=== PATIENT | male | born 2000 | race Asian ===

== ENCOUNTER 2018-02-07 10:25 | Emergency (ER) | payer MEDICAID ==
--- NOTE | 2018-02-07 11:05 | EDPHY ---
General - History Smoking Status: Never smoked Time Seen by Provider: 02/07/18 10:55 Narrative: CHIEF COMPLAINT: Head injury, headache, nausea HISTORY OF PRESENT ILLNESS: Patient presents per private vehicle with complaints of head injury last night. He states that he was drinking alcohol last night and then "I ran into a door and hit my head." He states that he struck his head on the left hoahaoism. He states that he actually does not remember this but he was told this happened. He is amnestic to the events approximately 1-2 hours proceeding is but knows that he was drinking. He says he awoke this morning on the couch with no knowledge of what happened with severe headache and nausea. No neck stiffness. No numbness or tingling. No vomiting. No visual disturbance. No complaints of pain elsewhere. He says that he does not typically ingest alcohol this much. He has had previous concussions and is concerned, thus he presents here for imaging. No neck pain or stiffness. No other associated complaints or modifying factors. REVIEW OF SYSTEMS: 10 systems were reviewed and negative with the exception of the elements mentioned in the history of present illness. PCP: Located in [place], [place] SPECIALISTS: None PAST MEDICAL HISTORY: Previous concussion PAST SURGICAL HISTORY: Left ORIF forearm surgery last year SOCIAL HISTORY: Nonsmoker. Occasional alcohol. No drug use. [employer] student studying environmental design. Originally from [place], [place]. FAMILY HISTORY: Noncontributory EXAMINATION: General Appearance: Alert, no distress Head: normocephalic, atraumatic. No Smart sign. No raccoon eyes. No depression deformity. Eyes: Pupils equal and round, no conjunctival pallor or injection ENT, Mouth: Mucous membranes moist Neck: Normal inspection, supple, non-tender Respiratory: Lungs are clear to auscultation Cardiovascular: Regular rate and rhythm Gastrointestinal: Abdomen is soft and nontender Back: non-tender, no bony abnormalities Neurological: GCS 15. Alert to person, place and time. Amnestic to details of his injury, nonfocal, normal gait. No pronator drift. Normal [id number]. Light sensation is symmetric in the upper lower extremities. Strength is symmetric in the elbows, wrists, interossei, knees, ankles triceps. Skin: Warm and dry, no rash. No petechiae, purpura, laceration or puncture to the area of injury. Extremities: Nontender, no pedal edema Psychiatric: Mood and affect normal DIFFERENTIAL DIAGNOSES: Including but not limited to concussion, closed-head injury, basilar skull fracture, intracranial hemorrhage, post alcohol ingestion headache, dehydration MDM: 11:00 a.m. Closed head injury late last night with severe headache, nausea and a message events. Difficult to discern if this is related to his head injury or alcohol as it is a confounding factor. He is not vomiting. He does not have any outward signs of intracranial abnormality. He is equivocal on his [place] CT head rules and is requesting that we perform a CT scan of the head as he has had previous concussions and is concerned. I discussed the risks, benefits alternatives, including that this will not provided diagnosis of concussion and he would like to proceed. He is in no acute distress. 11:40 a.m. Notified by radiologist Dr. Cavazos. There is no acute finding on CT scan of the head. Incidental note of dysconjugate gaze. Patient re-evaluated. He was actively vomiting thus I have ordered Zofran ODT. 12:00 p.m. Patient still feeling too nauseated to try p. O., thus we will place IV administered further medications. He is in no acute distress. 1:40 p.m. Patient re-evaluated. He has received 1 L IV fluid and further nausea medications by IV. He is now feeling much better. He is tolerating liquids by mouth. No active vomiting. Minimal headache. I do feel it is reasonable proceed with discharge home. We discussed head injury precautions. We discussed rest, anti inflammatories, Tylenol and increase fluid intake for the next 48 hr. We discussed ED precautions and referral to Dr. Thacker for further care if needed. SUPERVISION: This patient was independently evaluated without direct involvement of or examination by the attending physician. CONSULTATION: None (Olman Le) Medical Decision Making: I did not see this patient while he was in the emergency department. However his care is discussed with the PA while the patient was in the department. I agree with treatment plan and management (Ruiz Shi) - Objective Vital Signs: Initial Vital Signs Temperature (C) 36.5 C 02/07/18 10:32 Heart Rate 76 02/07/18 10:32 Respiratory Rate 18 02/07/18 10:32 Blood Pressure 142/84 H 02/07/18 10:32 O2 Sat (%) 95 02/07/18 10:32 O2 Delivery Mode Room Air Allergies/Adverse Reactions: No Known Allergies Allergy (Unverified 02/07/18 10:35) Home Medications: Medication Instructions Recorded Ondansetron Odt [Zofran Odt 4 mg 4 mg PO Q6 PRN #12 tab 02/07/18 (*)] Promethazine HCl [Phenergan 25mg 25 mg PO Q8 PRN #12 tab 02/07/18 (*)] Medications Given: Discontinued Medications Sodium Chloride (Ns) 1,000 mls @ 0 mls/hr IV ONCE ONE PRN Reason: Wide Open Stop: 02/07/18 12:24 Last Admin: 02/07/18 12:29 Dose: 1,000 mls Sodium Chloride (Ns) 1,000 mls @ 0 mls/hr IV EDNOW ONE; Wide Open PRN Reason: Protocol Stop: 02/07/18 12:59 Last Admin: 02/07/18 13:07 Dose: 1,000 mls Ondansetron HCl (Zofran Odt) 4 mg PO EDNOW ONE Stop: 02/07/18 11:43 Last Admin: 02/07/18 11:54 Dose: 4 mg Promethazine HCl (Phenergan) 12.5 mg IVP ONCE ONE Stop: 02/07/18 12:59 Last Admin: 02/07/18 13:06 Dose: 12.5 mg Departure - Departure Disposition: Home, Routine, Self-Care Clinical Impression: Closed head injury, Alcohol ingestion Condition: Good Instructions: Dehydration (ED) Additional Instructions: 1. Increase fluid intake over the next 48 hr 2. Ibuprofen 600 mg every 6-8 hours as needed 3. Tylenol 500-650 mg every 6-8 hours as needed 4. Follow up with Dr. Thacker for outpatient definitive care 5. ED precautions as discussed Referrals: Keri Thacker MD [Medical Doctor] - As per Instructions Physician,Emergency DeptMD [Medical Doctor] - As per Instructions Stand Alone Forms: School Excuse Prescriptions: Ondansetron Odt [Zofran Odt 4 mg (*)] 4 mg PO Q6 PRN #12 tab PRN Reason: Nausea/Vomiting, Use 1st Promethazine HCl [Phenergan 25mg (*)] 25 mg PO Q8 PRN #12 tab PRN Reason: Nausea/Vomiting, Use 1st
[2018-02-07] MEDS ORDERED: ONDANSETRON DISINTEGRATING 4 MG TAB PO ONE (11:42)
[2018-02-07] MEDS ORDERED: NS 1,000 ML IV ONE ×2 (12:23→12:58)
[2018-02-07] MEDS ORDERED: PROMETHAZINE HCL 25 MG/ML INJ IVP ONE (12:58)
[2018-02-07 14:14] VITALS: BP 145/84
== END 2018-02-07 14:08 | disposition home or self-care (01) ==
DX: S09.90XA Unspecified injury of head, initial encounter (principal); W22.8XXA Striking against or struck by other objects, initial encounter; Y92.9 Unspecified place or not applicable; E86.9 Volume depletion, unspecified
CPT/HCPCS: 96374; J2550